=== PATIENT | male | born 1955 | race Caucasian/White ===

== ENCOUNTER 2020-04-28 17:40 | Inpatient (IN) | payer OTHER ==
[~2020-04-28] VITALS: Ht 185.4 cm; Wt 120.7 kg
--- NOTE | 2020-04-28 18:00 | NUR ---
CIELO MOORE, PT FROM [facility], HERE D/T INFECTION IN BILARY STENT PLACED 04/17. PTS MD IS DR GO. PT CURRENLTY ON ZOSYN AND LEVOFLOXAIN. PT WITH REPORTED FEVERS, PT AFEBRILE ON ARRIVAL 98.6. PT DENIES COUGH OR OTHER RESP SYMPTOMS. NO PAIN REPORTED. PT TO BP, CONT PULSE OX
[2020-04-28] MEDS ORDERED: OMNIPAQUE 350 MG/ML, 100ML BOTTLE ONE (18:20)
[2020-04-28] MEDS ORDERED: SODIUM CHLORIDE 0.9% 1,000ML IVBOLUS ONE (18:30)
--- NOTE | 2020-04-28 21:13 | NUR ---
DRESSING CHANGE FOR BILIARY DRAIN. PATIET TOLERATED WELL. TAUGHT DAUGHTER PROPER WOUND CLEANSING AND DRESSING CHANGING TECHNIQUES. VITAL SIGNS STABLE. PATIENT UPDATE ON PLAN OF CARE. WILL CONTINUE TO MONITOR.
--- NOTE | 2020-04-28 21:51 | NUR ---
PER ANNABELLE RAMOS, NO COVID SWAB.
[2020-04-28] MEDS ORDERED: POLYETHYLENE GLYCOL 17 GM PACKET PO PRN (22:00)
[2020-04-28] MEDS ORDERED: OXYcodone IR 5MG TABLET PO PRN (22:00)
[2020-04-28] MEDS ORDERED: ONDANSETRON ODT 4 MG PO PRN (22:00)
[2020-04-28] MEDS ORDERED: BISACODYL 10 MG SUPP PR PRN (22:00)
[2020-04-28] MEDS ORDERED: PLEASE ENTER ALLERGIES MC SCH (23:00)
[2020-04-28] MEDS: CEFTRIAXONE PMX 1GM/50ML 50 ML IV SCH (23:37)
[2020-04-28] MEDS: SODIUM CHLORIDE 0.9% 1,000 ML IV SCH (23:45)
[2020-04-28 23:46] VITALS: BP 112/73
[2020-04-29] MEDS ORDERED: PARO20TA98 PO (00:05)
[2020-04-29] MEDS ORDERED: ASCO60LO PO (00:07)
[2020-04-29] MEDS ORDERED: BUPR-86 PO (00:08)
[2020-04-29] MEDS ORDERED: SIMV20TA PO (00:11)
[2020-04-29] MEDS ORDERED: METF500T17 PO (00:11)
[2020-04-29] MEDS ORDERED: PROP40TA PO (00:11)
[2020-04-29] MEDS ORDERED: METF500T PO (00:11)
[2020-04-29] MEDS ORDERED: TRAZ50TA66 PO (00:12)
[2020-04-29] MEDS ORDERED: VERA40TA PO (00:13)
[2020-04-29] MEDS ORDERED: TEST5GEL17 TD (00:16)
[2020-04-29] MEDS: AZITHROMYCIN 500 MG in SODIUM CHLORIDE 0.9% 250 ML IV SCH ×2 (00:36→23:51)
[2020-04-29] MEDS: MELATONIN 5 MG TABLET PO PRN (00:36)
[2020-04-29] MEDS: DOCUSATE 100 MG CAPSULE PO PRN ×2 (00:47→09:10)
[2020-04-29 00:49] VITALS: BP 112/72
[2020-04-29 03:46] LABS: MEAN CORPUSCULAR HEMOGLOBIN 32.7 pg (27.5-34.5); MEAN CORPUSCULAR HGB CONC 33.4 g/dL (33.2-36.2); MEAN CORPUSCULAR VOLUME 97.9 fL (81-97); MEAN PLATELET VOLUME 10.3 fL (7.4-10.4); PLATELET COUNT 228 x10^3/uL (130-400); RED BLOOD COUNT 4.14 x10^6/uL (4.38-5.82); RED CELL DISTRIBUTION WIDTH 14.2 % (9.4-14.8)
[2020-04-29 03:59] LABS: ANION GAP 6 mmol/L (5-15); CALCIUM 8.5 mg/dL (8.5-10.1); CHLORIDE 99 mmol/L (98-107)
[2020-04-29 04:02] LABS: ALANINE AMINOTRANSFERASE 323 U/L (12-78); ALKALINE PHOSPHATASE 351 U/L (45-117); BILIRUBIN,TOTAL 7.3 mg/dL (0.2-1.0); CREATININE 0.74 mg/dL (0.7-1.3); TOTAL PROTEIN 6.7 g/dL (6.4-8.2)
[2020-04-29 04:48] LABS: BASOPHILS # (AUTO) 0.01 x10^3/uL (0-0.1); BASOPHILS % (AUTO) 0 % (0-1); EOSINOPHILS # (AUTO) 0.23 x10^3/uL (0-0.4); EOSINOPHILS % (AUTO) 2 % (1-7); LYMPHOCYTES # (AUTO) 0.83 x10^3/uL (1-3.4); LYMPHOCYTES % (AUTO) 6 % (22-44); MD SCAN; MONOCYTES # (AUTO) 1.68 x10^3/uL (0.2-0.8); MONOCYTES % (AUTO) 11 % (2-9); NEUTROPHILS # (AUTO) 12.01 x10^3/uL (1.8-6.8); NEUTROPHILS % (AUTO) 81 % (42-75)
[2020-04-29 07:01] VITALS: BP 133/80
[2020-04-29] MEDS: SODIUM CHLORIDE 0.9% 1,000 ML IV SCH ×2 (09:12→19:46)
[2020-04-29 14:21] VITALS: BP 120/75
[2020-04-29] MEDS: INSULIN LISPRO 100 UNITS/ML, PEN SQ-INSULIN SCH ×2 (17:30→21:00)
[2020-04-29 19:41] VITALS: BP 131/81
[2020-04-29] MEDS: CEFTRIAXONE PMX 1GM/50ML 50 ML IV SCH (23:11)
[2020-04-30 02:08] VITALS: BP 144/88
[2020-04-30 06:14] LABS: ALBUMIN 2.1 g/dL (3.4-5.0); ANION GAP 9 mmol/L (5-15); BILIRUBIN, DIRECT 1.6 mg/dL (0.1-0.2); CALCIUM 8.4 mg/dL (8.5-10.1); CHLORIDE 102 mmol/L (98-107)
[2020-04-30 06:17] LABS: ALANINE AMINOTRANSFERASE 221 U/L (12-78); ALKALINE PHOSPHATASE 321 U/L (45-117); BILIRUBIN,INDIRECT 0.6 mg/dL (0.0-2.0); BILIRUBIN,TOTAL 2.2 mg/dL (0.2-1.0); CREATININE 0.66 mg/dL (0.7-1.3); TOTAL PROTEIN 7.2 g/dL (6.4-8.2)
[2020-04-30 06:21] LABS: MEAN CORPUSCULAR HEMOGLOBIN 33.2 pg (27.5-34.5); MEAN CORPUSCULAR VOLUME 97.7 fL (81-97); PLATELET COUNT 248 x10^3/uL (130-400); RED BLOOD COUNT 4.28 x10^6/uL (4.38-5.82); RED CELL DISTRIBUTION WIDTH 14.2 % (9.4-14.8)
[2020-04-30 06:54] LABS: BASOPHILS # (AUTO) 0.04 x10^3/uL (0-0.1); BASOPHILS % (AUTO) 0 % (0-1); EOSINOPHILS # (AUTO) 0.32 x10^3/uL (0-0.4); EOSINOPHILS % (AUTO) 3 % (1-7); LYMPHOCYTES # (AUTO) 0.97 x10^3/uL (1-3.4); LYMPHOCYTES % (AUTO) 9 % (22-44); MD SCAN; MONOCYTES # (AUTO) 1.11 x10^3/uL (0.2-0.8); MONOCYTES % (AUTO) 11 % (2-9); NEUTROPHILS # (AUTO) 8.15 x10^3/uL (1.8-6.8); NEUTROPHILS % (AUTO) 77 % (42-75)
[2020-04-30 06:59] VITALS: BP 136/83
[2020-04-30] MEDS: INSULIN LISPRO 100 UNITS/ML, PEN SQ-INSULIN SCH ×4 (07:00→20:42)
[2020-04-30] MEDS: SODIUM CHLORIDE 0.9% 1,000 ML IV SCH ×2 (08:21→18:49)
[2020-04-30 14:29] VITALS: BP 165/110
[2020-04-30 18:24] VITALS: BP 142/78
[2020-04-30] MEDS: MELATONIN 5 MG TABLET PO PRN (21:21)
[2020-04-30] MEDS: CEFTRIAXONE PMX 1GM/50ML 50 ML IV SCH (22:57)
[2020-04-30] MEDS: AZITHROMYCIN 500 MG in SODIUM CHLORIDE 0.9% 250 ML IV SCH (23:41)
[2020-05-01 01:41] VITALS: BP 143/87
[2020-05-01] MEDS: SODIUM CHLORIDE 0.9% 1,000 ML IV SCH ×2 (04:18→18:29)
[2020-05-01] MEDS: INSULIN LISPRO 100 UNITS/ML, PEN SQ-INSULIN SCH ×2 (07:00→11:00)
[2020-05-01 07:37] VITALS: BP 149/82
[2020-05-01] MEDS ORDERED: FENTANYL PF 100 MCG/2ML ONE (09:43)
[2020-05-01] MEDS ORDERED: ROCURONIUM 10 MG/ML,10ML ONE (09:43)
[2020-05-01] MEDS ORDERED: SUCCINYLCHOLINE 20 MG/ML, 10ML ONE (09:43)
[2020-05-01] MEDS ORDERED: ONDANSETRON 2MG/ML, 2ML ONE (09:43)
[2020-05-01] MEDS ORDERED: LIDOCAINE 4%, 4 ML SYR/CANN TP ONE (09:43)
[2020-05-01] MEDS ORDERED: DEXAMETHASONE 4 MG/ML, 1ML ONE (09:43)
[2020-05-01] MEDS ORDERED: PROPOFOL 10 MG/ML, 100ML IV ONE (09:43)
[2020-05-01] MEDS ORDERED: LABETALOL 5MG/ML, 20ML IV PRN (10:30)
[2020-05-01] MEDS ORDERED: PROMETHAZINE 25 MG/ML, 1ML IVPush PRN (10:30)
[2020-05-01] MEDS ORDERED: FENTANYL PF 100 MCG/2ML IV PRN (10:30)
[2020-05-01] MEDS ORDERED: OXYcodone 5 MG/5 ML ORAL.SOL UDC PO PRN (10:30)
[2020-05-01] MEDS ORDERED: ALBUTEROL SULFATE 2.5 MG/3 ML NPPB PRN (10:30)
[2020-05-01] MEDS: PAROXETINE 20 MG TABLET PO SCH (12:56)
[2020-05-01] MEDS: PROPRANOLOL 40 MG TABLET PO SCH (12:57)
[2020-05-01] MEDS: BUPROPION SR 150 MG TABLET PO SCH (12:57)
[2020-05-01] MEDS: VERAPAMIL 40MG TABLET PO SCH (12:57)
[2020-05-01 14:55] VITALS: BP 146/83
[2020-05-01 18:45] VITALS: BP 141/78
[2020-05-01] MEDS ORDERED: TRAZODONE 50MG TABLET PO SCH (21:00)
[2020-05-01] MEDS: CEFTRIAXONE PMX 1GM/50ML 50 ML IV SCH (23:31)
[2020-05-02] MEDS: AZITHROMYCIN 500 MG in SODIUM CHLORIDE 0.9% 250 ML IV SCH (00:02)
[2020-05-02] MEDS: MELATONIN 5 MG TABLET PO PRN (00:03)
[2020-05-02 00:27] VITALS: BP 138/75
[2020-05-02] MEDS: SODIUM CHLORIDE 0.9% 1,000 ML IV SCH ×2 (05:13→12:00)
[2020-05-02] MEDS: PROPRANOLOL 40 MG TABLET PO SCH (05:15)
[2020-05-02 05:18] LABS: BASOPHILS # (AUTO) 0.05 x10^3/uL (0-0.1); BASOPHILS % (AUTO) 0 % (0-1); EOSINOPHILS # (AUTO) 0.13 x10^3/uL (0-0.4); EOSINOPHILS % (AUTO) 1 % (1-7); LYMPHOCYTES # (AUTO) 1.21 x10^3/uL (1-3.4); LYMPHOCYTES % (AUTO) 10 % (22-44); MD NO; MEAN CORPUSCULAR HEMOGLOBIN 32.4 pg (27.5-34.5); MEAN CORPUSCULAR HGB CONC 33.3 g/dL (33.2-36.2); MEAN CORPUSCULAR VOLUME 97.2 fL (81-97); MEAN PLATELET VOLUME 9.5 fL (7.4-10.4); MONOCYTES # (AUTO) 1.02 x10^3/uL (0.2-0.8); MONOCYTES % (AUTO) 9 % (2-9); NEUTROPHILS % (AUTO) 80 % (42-75); PLATELET COUNT 270 x10^3/uL (130-400); RED BLOOD COUNT 4.12 x10^6/uL (4.38-5.82); RED CELL DISTRIBUTION WIDTH 14.1 % (9.4-14.8)
[2020-05-02 05:23] LABS: ALANINE AMINOTRANSFERASE 132 U/L (12-78); ALBUMIN 2.2 g/dL (3.4-5.0); ANION GAP 6 mmol/L (5-15); CALCIUM 8.3 mg/dL (8.5-10.1); CHLORIDE 105 mmol/L (98-107); CREATININE 0.77 mg/dL (0.7-1.3)
[2020-05-02 05:25] LABS: ALKALINE PHOSPHATASE 222 U/L (45-117); BILIRUBIN,TOTAL 1.5 mg/dL (0.2-1.0); TOTAL PROTEIN 6.9 g/dL (6.4-8.2)
[2020-05-02 07:00] VITALS: BP 134/75
[2020-05-02] MEDS: BUPROPION SR 150 MG TABLET PO SCH (07:46)
[2020-05-02] MEDS: PAROXETINE 20 MG TABLET PO SCH (07:46)
[2020-05-02] MEDS: VERAPAMIL 40MG TABLET PO SCH (07:46)
[2020-05-02] MEDS ORDERED: metFORMIN 500 MG TABLET PO SCH (08:00)
[2020-05-02 14:57] VITALS: BP 135/82
== END 2020-05-02 17:45 | disposition home or self-care (01) | DRG 435 ==
LOC: ED 19:49 → EDIP 21:08 → 3N 23:09 → 3WST 04-30 12:30
PROVIDERS: ADMIT Family Medicine; ATTEND Hospitalist
PROC: 0F998ZZ Drainage of Common Bile Duct, Via Natural or Artificial Opening Endoscopic (ICD-10-PCS; 2020-05-01)
PROC: 0FBG8ZX Excision of Pancreas, Via Natural or Artificial Opening Endoscopic, Diagnostic (ICD-10-PCS; 2020-05-01)
PROC: 0FPB8DZ Removal of Intraluminal Device from Hepatobiliary Duct, Via Natural or Artificial Opening Endoscopic (ICD-10-PCS; 2020-05-01)
PROC: 0F798DZ Dilation of Common Bile Duct with Intraluminal Device, Via Natural or Artificial Opening Endoscopic (ICD-10-PCS; 2020-05-01)
PROC: BF111ZZ Fluoroscopy of Biliary and Pancreatic Ducts using Low Osmolar Contrast (ICD-10-PCS; principal; 2020-05-01 10:00)
DX: C25.0 Malignant neoplasm of head of pancreas (principal); K83.1 Obstruction of bile duct; E87.1 Hypo-osmolality and hyponatremia; E11.9 Type 2 diabetes mellitus without complications; I10 Essential (primary) hypertension; F32.9 Major depressive disorder, single episode, unspecified; Z85.07 Personal history of malignant neoplasm of pancreas
CPT/HCPCS: 36415; 74177; 74328; 80048; 80053; 80076; 82962; 85025; 88172; 88173; 88177; 88307; 93005; 99285; G0378; J0456; J0696; J1100; J2405; J2704; J3010; Q9967; C1769; C1894; C2625; J0330; J7030; J7050; U0001-CS

== ENCOUNTER → 2020-05-16 | Outpatient (CLI) | payer OTHER ==
[~2020-05-16] MED LIST: ASCO60LO PO; BUPR-86 PO; METF500T PO; METF500T17 PO; PARO20TA98 PO; PROP40TA PO; SIMV20TA PO; TEST5GEL17 TD; TRAZ50TA66 PO; VERA40TA PO
== END | disposition home or self-care (01) ==
LOC: PETCFH 07:42
PROVIDERS: ATTEND Internal Medicine Hematology & Oncology
DX: C25.1 Malignant neoplasm of body of pancreas (principal); K44.9 Diaphragmatic hernia without obstruction or gangrene; R18.8 Other ascites; R59.1 Generalized enlarged lymph nodes
CPT/HCPCS: 78815; A9552

== ENCOUNTER 2020-05-21 10:19 | Day surgery (SDC) | payer OTHER ==
[~2020-05-21] VITALS: Ht 185.4 cm; Wt 127.0 kg
[2020-05-21] MEDS ORDERED: CEFAZOLIN PMX 1GM/50ML 50 ML IV STA (10:58)
[2020-05-21] MEDS ORDERED: SODIUM CHLORIDE 0.9% 1,000 ML IV SCH (10:58)
[2020-05-21 10:59] VITALS: BP 142/93
[2020-05-21] MEDS ORDERED: CEFAZOLIN PMX 1GM/50ML 50 ML ONE (11:10)
[2020-05-21] MEDS ORDERED: LIDOCAINE 1%, 20ML ONE (11:20)
== END 2020-05-21 13:40 | disposition home or self-care (01) ==
LOC: OUT 10:19 → EDSTATUS 12:00 → OUT 13:40
PROVIDERS: ATTEND Internal Medicine Hematology & Oncology
DX: C25.0 Malignant neoplasm of head of pancreas (principal); I10 Essential (primary) hypertension; E11.9 Type 2 diabetes mellitus without complications
CPT/HCPCS: 36561; 76937; 77001; 99156; 99157; C1788; J0690; J1642; J2250; J3010; J7030; J2310

== ENCOUNTER → 2020-05-30 | Outpatient (CLI) | payer OTHER | END | disposition home or self-care (01) | LOC: RAD 08:50 | PROVIDERS: ATTEND Internal Medicine Hematology & Oncology | DX: C25.0 Malignant neoplasm of head of pancreas (principal); K76.0 Fatty (change of) liver, not elsewhere classified; R18.8 Other ascites; J98.11 Atelectasis; K59.00 Constipation, unspecified; M47.814 Spondylosis without myelopathy or radiculopathy, thoracic region | CPT/HCPCS: 74022; 76700 ==

== ENCOUNTER → 2020-06-04 | Outpatient (CLI) | payer OTHER ==
[~2020-06-04] MED LIST changes: +LIDOCAINE 1%, 10ML ONE; +OMNIPAQUE 350 MG/ML, 150 ML BOTTLE ONE
== END | disposition home or self-care (01) ==
LOC: RAD 13:22
PROVIDERS: ATTEND Internal Medicine Hematology & Oncology
DX: R18.8 Other ascites (principal); C25.0 Malignant neoplasm of head of pancreas; J90 Pleural effusion, not elsewhere classified
CPT/HCPCS: 49083; 74177; 82042; 84157; 87070; 87075; 87205; 89051; J3490; Q9967

== ENCOUNTER → 2020-06-12 | Outpatient (CLI) | payer OTHER ==
[~2020-06-12] MED LIST changes: -OMNIPAQUE 350 MG/ML, 150 ML BOTTLE ONE
== END | disposition home or self-care (01) ==
LOC: RAD 08:50
PROVIDERS: ATTEND Internal Medicine Hematology & Oncology
DX: R18.8 Other ascites (principal); C25.0 Malignant neoplasm of head of pancreas
CPT/HCPCS: 49083; 88112; 88305; 88341; 88342; J3490